=== PATIENT | male | born 1980 | race Caucasian/White ===

== ENCOUNTER 2021-05-08 08:24 | Emergency (ER) | payer BC, SELFPAY ==
[2021-05-08 08:32] VITALS: BP 119/78; PULSE 95; RESP 14; TEMP 37.2; O2SAT 98
--- NOTE | 2021-05-08 09:46 | ED.GENADULT ---
HPI - General Adult General Chief complaint: Dental/Oral Stated complaint: white spot inside mouth Source: patient Mode of arrival: ambulatory Limitations: no limitations History of Present Illness HPI narrative: Patient presents for evaluation of painful lesion to the right inner cheek for the last 3 days. He believes he bit his inner cheek. He has a tendency to do so when he sleeps. He states that he was told to wear a mouthguard at night. No fever, chills, nausea, vomiting, difficulty breathing or swallowing. He has not tried any therapies to assist with his symptoms. He looked at his symptoms on [employer] and he was concerned that based on his search he may have cancer. This prompted him to come in for evaluation today. Related Data Allergies Allergy/AdvReac Type Severity Reaction Status Date / Time Sulfa (Sulfonamide AdvReac VIOLENTLY Verified 05/08/21 08:45 Antibiotics) ILL PAIN MEDICATIONS AdvReac VIOLENTLY Uncoded 05/08/21 08:46 ILL Review of Systems Review of Systems: GENERAL: Well-appearing, well-nourished, and in no acute distress. HEAD: Normocephalic, atraumatic. EYES: PERRLA and EOMI. ENT: Nares clear, no rhinorrhea or epistaxis. Mucous membranes moist. Reports lesion to right inner cheek. Oropharynx without tonsillar hypertrophy exudate or other lesions. Bilateral TMs pearly armendariz nonbulging NECK: Supple. No adenopathy or masses. No carotid bruits or JVD CHEST: Clear to auscultation. No respiratory distress. No wheezes rales or rhonchi HEART: Regular rate and rhythm. No murmur heard. Normal peripheral pulses. ABDOMEN: Soft, nontender, nondistended, normal active bowel sounds. EXTREMITIES: Normal range of motion. No edema. SKIN: Warm, dry, no rash. NEURO: No focal deficits. Alert and oriented x3. PSYCH: Normal mood and affect. [facility] Past Medical History Medical History Eczema Surgical History Surgical History (Updated 05/08/21 @ 09:48 by PATRICIA Wesley, LD) No pertinent past surgical history Family History Family History Mother No pertinent past medical history Social History Social History Smoking status: Never smoker Alcohol intake: never Substance use: current Substance use type: marijuana Living arrangements: alone Gender identity (if verbalized by the patient): Male Spiritual care concerns: No Exam Narrative: GENERAL: Well-appearing, well-nourished, and in no acute distress. HEAD: Normocephalic, atraumatic. EYES: PERRLA and EOMI. ENT: Nares clear, no rhinorrhea or epistaxis. Mucous membranes moist. There is approximately 5mm area of hypopigmentation noted to right inner cheek consistent with canker sore. Oropharynx without tonsillar hypertrophy exudate or other lesions. Bilateral TMs pearly armendariz nonbulging NECK: Supple. No adenopathy or masses. No carotid bruits or JVD CHEST: Clear to auscultation. No respiratory distress. No wheezes rales or rhonchi HEART: Regular rate and rhythm. No murmur heard. Normal peripheral pulses. ABDOMEN: Soft, nontender, nondistended, normal active bowel sounds. EXTREMITIES: Normal range of motion. No edema. SKIN: Warm, dry, no rash. NEURO: No focal deficits. Alert and oriented x3. PSYCH: Normal mood and affect. Course Course Emergency Course: This is a 41 yr old male here today with what appears to be a canker sore. Will dc with chlorhexidine. He should follow up outpatient for further evaluation and treatment and return for worsening symptoms. Pt in agreement with plan of care. Level of Care: Express Care Visit Vital Signs Vital signs: Vital Signs Temperature 37.2 C 05/08/21 08:32 Pulse Rate 95 05/08/21 08:32 Respiratory Rate 14 05/08/21 08:32 Blood Pressure 119/78 05/08/21 08:32 Pulse Oximetry 98 05/08/21 08:3
== END 2021-05-08 09:59 | disposition home or self-care (01) ==
PROVIDERS: Emergency Provider Nurse Practitioner
DX: K12.0 Recurrent oral aphthae (principal)
CPT/HCPCS: 99213; G0463